=== PATIENT | male | born 1980 | race Caucasian/White ===

== ENCOUNTER 2017-06-22 07:07 | Emergency (ER) | payer OTHER ==
[2017-06-22 07:15] VITALS: BP 142/91; PULSE 75; TEMP 99.1; BMI 32.1
[2017-06-22] MEDS ORDERED: SODIUM CHLORIDE 0.9% 500 ML INFUS.BAG IV ONE (07:38)
--- NOTE | 2017-06-22 07:38 | PDOC ---
History of Present Illness - General Chief Complaint: Pain, Acute Stated Complaint: HAS THE FLU, BODY ACHES COUGH Time Seen by Provider: 06/22/17 07:15 - History of Present Illness Initial Comments: 06/22/17 08:02 36-year-old male with a history of MRSA infection complicated by C. difficile colitis presents with worsening productive cough and chest discomfort when coughing since yesterday. The patient was diagnosed with influenza 2 days ago at an urgent care center in [place]. He was advised at the time that should he experience any productive cough that he would need a chest x-ray to rule out pneumonia. He reports his cough is at times productive of green sputum.His brought him to the emergency department because this morning he had a syncopal episode after he used the bathroom at about 6am. The patient reports he had just voided and walked out of the bathroom and felt very lightheaded, had tunnel vision, and then sat down on the stairs. He then reports loss of consciousness for a few seconds. No fall or head strike. No injuries. No chest discomfort or palpitations prior to the syncopal episode. He reports a similar syncopal episode in the past also while sick, and also after using the bathroom. He reports he has not been eating much, but has been trying to drink plenty of water, Gatorade, and soup. He also reports a generalized, gradual onset headache and bodyaches since the onset of this flu symptoms. Denies any weakness or numbness. Denies chest pain, other than chest discomfort when he is coughing. Denies shortness of breath. Denies abdominal pain, nausea, vomiting, diarrhea. Denies any recent travel. Past History - Past Medical History Allergies/Adverse Reactions: Allergies Allergy/AdvReac Type Severity Reaction Status Date / Time No Known Drug Allergies Allergy Verified 06/22/17 07:09 wheat AdvReac Nausea Verified 06/22/17 07:09 COPD: No GI Disorders: Yes (COLITIS, C.DIFFICILE) Other medical history: DX WITH FLU ON TUESDAY - Immunization History Immunization Up to Date: Yes - Suicide/Smoking/Psychosocial Hx Smoking Status: No Smoking History: Never smoked Have you smoked in the past 12 months: No Number of Cigarettes Smoked Daily: 0 Information on smoking cessation initiated: No Hx Alcohol Use: No Drug/Substance Use Hx: No Substance Use Type: None Hx Substance Use Treatment: No Review of Systems - Review of Systems Comments:: 06/22/17 08:05 GENERAL/CONSTITUTIONAL: +fever and chills. No weakness. HEAD, EYES, EARS, NOSE AND THROAT: No change in vision. No ear pain or discharge. +sore throat. GASTROINTESTINAL: No nausea, vomiting, diarrhea or constipation. GENITOURINARY: No dysuria, frequency, or change in urination. CARDIOVASCULAR: +chest discomfort. No shortness of breath. RESPIRATORY: +cough, no wheezing or hemoptysis. MUSCULOSKELETAL: +bodyaches. No neck or back pain. SKIN: No rash NEUROLOGIC: +headache, no vertigo, loss of consciousness, or change in strength/ sensation. ENDOCRINE: No increased thirst. No abnormal weight change. HEMATOLOGIC/LYMPHATIC: No anemia, easy bleeding, or history of blood clots. ALLERGIC/IMMUNOLOGIC: No hives or skin allergy. *Physical Exam - Vital Signs Last Vital Signs Temp Pulse Resp BP Pulse Ox 99.1 F 75 18 142/91 96 06/22/17 07:09 06/22/17 07:09 06/22/17 07:09 06/22/17 07:09 06/22/17 07:09 - Physical Exam Comments: 06/22/17 08:15 GENERAL: Awake, alert, and fully oriented, in no acute distress with a mask on HEAD: No signs of trauma EYES: PERRLA, EOMI, sclera anicteric, conjunctiva clear ENT: Auricles normal inspection, hearing grossly normal, nares patent, oropharynx clear without exudates. Moist mucosa NECK: Normal ROM, supple, no lymphadenopathy, JVD, or masses LUNGS: Breath sounds equal, clear to auscultation bilaterally. No wheezes, and no crackles HEART: Regular rate and rhythm, normal S1 and S2, no murmurs, rubs or gallops ABDOMEN: Soft, nontender, normoactive bowel sounds. No guarding, no rebound. No masses EXTREMITIES: Normal range of motion, no edema. No clubbing or cyanosis. No cords, erythema, or tenderness NEUROLOGICAL: Normal speech, cranial nerves intact, negative pronator drift, 5/ 5 strength in all 4 extremities, normal sensation to light touch in all 4 extremities, normal cerebellar exam, normal gait, normal reflexes and tone SKIN: Warm, Dry, normal turgor, no rashes or lesions noted. Heart Score/ECG Review #1 06/22/17 08:11 Twelve-lead EKG was performed and reviewed by me. Normal sinus rhythm, rate 70. CT interval appears short in some leads, but normal in other leads. Other intervals within normal limits. Normal axis. No ST elevations. ED Treatment Course - LABORATORY CBC & Chemistry Diagram: 06/22/17 08:06 06/22/17 08:06 - RADIOLOGY Radiology Studies Ordered: Category Date Time Status CHEST PA & LAT [RAD] Stat Radiology 06/22/17 07:38 Ordered Medical Decision Making - Medical Decision Making 06/22/17 08:12 36-year-old male, recently diagnosed with the flu, presents with productive cough and syncopal episode. Lungs are clear on exam, and his oxygen saturation on my exam is 99% on room air. It is unlikely that the patient has pneumonia, but we'll obtain a chest x-ray to evaluate for any infiltrates. His symptoms more likely represents bronchitis in the setting of his influenza. With regards to the syncopal episode, it most likely represents vasovagal syncope as it occurred after he voided and in the setting of a viral illness. His EKG has a short CT interval and some leads, but a normal one in others. No delta waves, and thus unlikely WPW. Patient is possibly dehydrated, we'll obtain blood work and give fluids and reassess. 06/22/17 08:49 CBC wnl. CXR clear with no infiltrates. Awaiting CMP 06/22/17 09:53 CMP wnl. All results discussed with pt and his . These symptoms are likely all flu related. Pt has off from work tomorrow, advised him to follow up with PMD tomorrow. I discussed the physical exam findings, ancillary test results and final diagnoses with the patient. I answered all of the patient's questions. The patient was satisfied with the care received and felt comfortable with the discharge plan and treatment plan. The patient will call their primary care physician within 24 hours to arrange follow-up and will return to the Emergency Department with any new, persistent or worsening symptoms. *DC/Admit/Observation/Transfer Diagnosis at time of Disposition: Influenza - Discharge Dispostion Disposition: HOME Condition at time of disposition: Stable Admit: No - Referrals - Patient Instructions Printed Discharge Instructions: DI for Influenza -- Adult Additional Instructions: Follow-up with your primary care doctor within 1-2 days. As discussed, take the provided copy of your EKG to the doctor for a repeat, and possible referral to a gi physician. Return to the emergency department if you have any new, worsening or concerning symptoms. - Post Discharge Activity - Attestations Physician Attestion: 06/22/17 09:55 I, Dr. Leonardo Stafford MD, attest that this document has been prepared under my direction and personally reviewed by me in its entirety. I further attest, that it accurately reflects all work, treatment, procedures and medical decision -making performed by me.
[2017-06-22 08:16] LABS: BASO % 0.8 % (0-2.0); EOS % 9.9 % (0-4.5); HEMATOCRIT 41.9 % (35.4-49); HEMOGLOBIN 14.2 GM/dl (11.7-16.9); LYMPH % 22.5 % (8-40); MCH 28.8 pg (25.7-33.7); MCHC 33.9 g/dl (32.0-35.9); MEAN CELL VOLUME 84.9 fl (80-96); MEAN PLT VOLUME 9.5 fl (7.5-11.1); MONO % 11.8 % (3.8-10.2); PLATELET COUNT 131 K/MM3 (134-434); RBC 4.94 M/mm3 (4.00-5.60); RDW 12.5 % (11.9-15.9)
[2017-06-22 09:28] LABS: ALBUMIN 3.4 g/dl (3.4-5.0); ALK PHOS 70 U/L (45-117); ANION GAP 9 (8-16); BILIRUBIN,TOTAL 0.3 mg/dL (0.2-1.0); BLOOD UREA NITROGEN 8 mg/dL (7-18); CALCIUM 7.8 mg/dL (8.5-10.1); CHLORIDE 105 mmol/L (98-107); CO2 26 mmol/L (21-32); CREATININE 0.8 mg/dL (0.7-1.3); GLUCOSE,RANDOM 93 mg/dL (74-106); POTASSIUM 4.1 mmol/L (3.5-5.1); SGOT/AST 19 U/L (15-37); SGPT/ALT 25 U/L (12-78); SODIUM 140 mmol/L (136-145); TOT PROT 6.3 g/dl (6.4-8.2)
--- NOTE | 2017-06-23 17:42 | EKG ---
Test Reason : Blood Pressure : / mmHG Vent. Rate : 070 BPM Atrial Rate : 070 BPM P-R Int : 106 ms QRS Dur : 090 ms QT Int : 392 ms P-R-T Axes : 030 002 -12 degrees QTc Int : 423 ms SINUS RHYTHM WITH SHORT NV NO PREVIOUS ECGS AVAILABLE Confirmed by MD MADDY, CHETAN ([id number]) on 06/23/2017 5:41:40 PM Referred By: SARAH AYALA Confirmed By:CHETAN CASTAÑEDA MD
== END 2017-06-22 10:14 | disposition home or self-care (01) ==
LOC: FER 07:07
PROC: 3E0337Z Introduction of Electrolytic and Water Balance Substance into Peripheral Vein, Percutaneous Approach (ICD-10-PCS; principal; 2017-06-22)
DX: J11.1 Influenza due to unidentified influenza virus with other respiratory manifestations (principal); Z86.14 Personal history of Methicillin resistant Staphylococcus aureus infection
CPT/HCPCS: 36415; 71046-TC; 80053; 84484; 85025; 93005; 99281-25

== ENCOUNTER 2017-08-13 16:02 | Emergency (ER) | payer OTHER ==
--- NOTE | 2017-08-13 16:09 | PDOC ---
History of Present Illness <Leonardo Stafford - Last Filed: 08/13/17 17:47> - General History Source: Patient Exam Limitations: No Limitations - History of Present Illness Initial Comments: 08/13/17 21:05 The patient is a 36 year old male with no past medical history who arrives to the ED s/p left pinky injury after playing basketball today. The patient states he fell onto his extended pinky and it has been jammed ever since. Denies head strike or other injuries. The patient reports mild pain and an inability to extend his pinky. The patient denies any numbness or tingling to his right extremity. He denies taking anything for pain. The patient denies any other focal deficits, He denies any recent illness, fevers, or chills. <Stefani Ledezma - Last Filed: 08/13/17 21:07> - General Chief Complaint: Injury Stated Complaint: LEFT 5TH FINGER INJURY Time Seen by Provider: 08/13/17 16:09 Past History - Past Medical History COPD: No GI Disorders: Yes (COLITIS, C.DIFFICILE) - Immunization History Immunization Up to Date: Yes - Suicide/Smoking/Psychosocial Hx Smoking Status: No Smoking History: Never smoked Have you smoked in the past 12 months: No Number of Cigarettes Smoked Daily: 0 Hx Alcohol Use: No Drug/Substance Use Hx: No Substance Use Type: None Hx Substance Use Treatment: No <Leonardo Stafford - Last Filed: 08/13/17 17:47> <Stefani Ledezma - Last Filed: 08/13/17 21:07> - Past Medical History Allergies/Adverse Reactions: Allergies Allergy/AdvReac Type Severity Reaction Status Date / Time No Known Drug Allergies Allergy Verified 08/13/17 16:08 wheat AdvReac Nausea Verified 08/13/17 16:08 Home Medications: Ambulatory Orders NK [No Known Home Medication] 08/13/17 Review of Systems - Review of Systems Able to Perform ROS?: Yes Comments:: 08/13/17 21:06 GENERAL/CONSTITUTIONAL: No fever or chills. No weakness. HEAD, EYES, EARS, NOSE AND THROAT: No change in vision. No ear pain or discharge. No sore throat. GASTROINTESTINAL: No nausea, vomiting, diarrhea or constipation. GENITOURINARY: No dysuria, frequency, or change in urination. CARDIOVASCULAR: No chest pain or shortness of breath. RESPIRATORY: No cough, wheezing, or hemoptysis. MUSCULOSKELETAL: Present: Right 5th digit pain No neck or back pain. SKIN: No rash NEUROLOGIC: No headache, vertigo, loss of consciousness, or change in strength/ sensation. ENDOCRINE: No increased thirst. No abnormal weight change. HEMATOLOGIC/LYMPHATIC: No anemia, easy bleeding, or history of blood clots. ALLERGIC/IMMUNOLOGIC: No hives or skin allergy. All Other Systems: Reviewed and Negative <Stefani Ledezma - Last Filed: 08/13/17 21:07> *Physical Exam - Vital Signs Last Vital Signs Temp Pulse Resp BP Pulse Ox 98.3 F 90 20 143/90 100 08/13/17 16:02 08/13/17 16:02 08/13/17 16:02 08/13/17 16:02 08/13/17 16:02 - Physical Exam Comments: 08/13/17 21:06 GENERAL: Awake, alert, and fully oriented, in no acute distress HEAD: No signs of trauma EYES: PERRLA, EOMI, sclera anicteric, conjunctiva clear ENT: Auricles normal inspection, hearing grossly normal, nares patent, oropharynx clear without exudates. Moist mucosa NECK: Normal ROM, supple, no lymphadenopathy, JVD, or masses LUNGS: Breath sounds equal, clear to auscultation bilaterally. No wheezes, and no crackles HEART: Regular rate and rhythm, normal S1 and S2, no murmurs, rubs or gallops ABDOMEN: Soft, nontender, normoactive bowel sounds. No guarding, no rebound. No masses EXTREMITIES: L fifth digit with edema and ecchymosis at the proximal intraphalangeal joint with boutonniere deformity Normal range of motion +weak extension at PIP. Normal sensation of L fifth digit. No clubbing or cyanosis. No cords. 2+ radial pulses b/l BACK: No midline spinal tenderness in cervical/thoracic/lumbar region NEUROLOGICAL: Normal speech, cranial nerves intact, negative pronator drift, 5/ 5 strength in all 4 extremities, normal sensation to light touch in all 4 extremities, normal cerebellar exam, normal gait, normal reflexes and tone SKIN: Warm, Dry, normal turgor, no rashes or lesions noted. <Stefani Ledezma - Last Filed: 08/13/17 21:07> ED Treatment Course - RADIOLOGY Radiograph Interpretation: 08/13/17 17:21 EXAM: HAND- LEFT XRAY HISTORY: Status post trauma. COMPARISON: None. FINDINGS: X-ray left hand 3 views There is no evidence of fracture or dislocation. There is a contracture deformity noted involving the proximal interphalangeal joint of the fifth finger. No significant osteodegenerative changes or other osseous abnormalities are appreciated. No significant surrounding soft tissue abnormality is seen. IMPRESSION: No fracture or dislocation. Contracture deformity involving the proximal interphalangeal joint of the fifth finger. THIS DOCUMENT HAS BEEN ELECTRONICALLY SIGNED Lanre Holder MD - Medications Given in the ED: ED Medications Discontinued Medications Generic Name Dose Route Start Last Admin Trade Name Freq PRN Reason Stop Dose Admin Ibuprofen 600 mg 08/13/17 16:13 08/13/17 16:19 Motrin - PO 08/13/17 16:14 600 mg ONCE ONE Administration <Stefani Ledezma - Last Filed: 08/13/17 21:07> Medical Decision Making - Medical Decision Making 08/13/17 16:14 36-year-old male with no significant past medical history presents with left fifth finger injury from jamming it while playing basketball. Exam with edema to the PIP of the left fifth finger. Patient is neurovascularly intact and able to range his L 5th finger fully but with pain. Will obtain an x-ray to evaluate for fracture versus dislocation. Will treat with Motrin and reassess. 08/13/17 17:47 XR with no fracture or dislocation, likely acute boutonniere deformity due to central slip injury. Case and imaging discussed with Dr. Ingram who recommends spliting in extension and ortho f/u. Discussed results with patient and the importance of keeping the finger in extension in the splint so that it can heal. Pt has his own orthopedic doctor with whom he can follow up (XR report given to patient). WIll also refer to Dr. Gaines in case he can not get an appointment with his own ortho doc. Pain well controlled with motrin, pt requests DC. I discussed the physical exam findings, ancillary test results and final diagnoses with the patient. I answered all of the patient's questions. The patient was satisfied with the care received and felt comfortable with the discharge plan and treatment plan. The patient will call their primary care physician within 24 hours to arrange follow-up and will return to the Emergency Department with any new, persistent or worsening symptoms. <Leonardo Stafford - Last Filed: 08/13/17 17:47> *DC/Admit/Observation/Transfer - Discharge Dispostion Admit: No - Attestations Physician Attestion: 08/13/17 18:02 I, Dr. Leonardo Stafford MD, attest that this document has been prepared under my direction and personally reviewed by me in its entirety. I further attest, that it accurately reflects all work, treatment, procedures and medical decision -making performed by me. <Leonardo Stafford - Last Filed: 08/13/17 17:47> - Attestations Scribe Attestion: 08/13/17 17:22 Documentation prepared by Stefani Ledezma, acting as medical practice administrator for Leonardo Stafford MD. 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 Follow-up with your orthopedic doctor within one week. In case you are are unable to get an appointment, use our provided referral to follow-up with Dr. Gaines within 1 week. Take the provided x- ray report with you to your appointment. Take Motrin as needed for pain every 6 hours. Return to the emergency department if you have any new, worsening or concerning symptoms.
[2017-08-13] MEDS ORDERED: IBUPROFEN 600 MG TABLET (FP) PO ONE ×2 (16:13→16:18)
[2017-08-13 16:16] VITALS: BP 143/90; PULSE 90; TEMP 98.3; BMI 31.4
== END 2017-08-13 18:04 | disposition home or self-care (01) ==
LOC: FER 16:02
PROC: 2W3KX1Z Immobilization of Left Finger using Splint (ICD-10-PCS; principal; 2017-08-13)
DX: M20.022 Boutonniere deformity of left finger(s) (principal); X58.XXXA Exposure to other specified factors, initial encounter; Y93.67 Activity, basketball; Y92.9 Unspecified place or not applicable
CPT/HCPCS: 73130-TC-LR-FY; 99281-25

== ENCOUNTER 2018-03-19 21:42 | Day surgery (SDC) | payer OTHER ==
[2018-03-19] MEDS ORDERED: GLUCAGON 1 MG KIT IVPUSH ONE (21:45)
--- NOTE | 2018-03-19 21:45 | PDOC ---
History of Present Illness - General History Source: Patient Exam Limitations: No Limitations - History of Present Illness Initial Comments: 03/19/18 22:34 The patient is a 37-year-old male presents to the emergency department with dysphagia since 2:00 pm today. The patient states the symptoms presented after eating BBQ chicken pizza earlier today. The patient reports since presentation hes been unable to keep food or fluid down. The patient states after intaking food or liquid, he'll immediately vomit it back up. The patient reports prior similar incident in the past, reports having an endoscopy done in the past. The patient states the doctor informed him that he has a tight sphincter. The patient states prior incidents werent as severe as today and previous incidents resolved on its own. Denies shortness of breath, diarrhea, constipation, abdominal pain, chest pain or abdominal bloating. PAST MEDICAL HISTORY: MRSA infection complicated by C. difficile colitis PAST SURGICAL HISTORY: Endoscopy FAMILY HISTORY: no pertinent history SOCIAL HISTORY: Pt lives with family and is employed. No past or present use of tobacco, alcohol or recreational drug use. MEDICATIONS: reviewed ALLERGIES: NKDA ROS: General: No fevers or chills, no weakness, no weight loss HEENT: No change in vision. No sore throat,. No ear pain CardioVascular: No chest pain or shortness of breath Respiratory:No cough, or wheezing. Gastrointestinal: (+) Difficulty swallowing. no nausea, vomiting, diarrhea or constipation, No rectal bleeding Genitourinary: No dysuria, hematuria, or frequency Musculoskeletal: No joint or muscle pain or swelling Neurologic: No headache, vertigo, dizziness or loss of consciousness Psychiatric: nor depression Skin: No rashes or easy bruising Endocrine: no increased thirst or abnormal weight change Allergic: no skin or latex allergy All other systems reviewed and normal PE: General: Well-nourished well-developed individual, no acute distress HEENT: Throat: Normal, tonsils normal, no erythema or exudate Neck: Supple, no meningeal signs, no lymphadenopathy Eyes::Pupils equal reactive and round, extraocular motion intact Chest: Nontender to palpation Cardiac: S1-S2 normal, regular rate and rhythm, no murmurs rubs or gallops Respiratory: Lungs clear to auscultation bilateral Abdomen: (+) Patient points to the gastroesophageal junction as the point where something is stuck. The patient was given is a cup of water at the ER, that he vomited back up and continuously bring up of secretion. nondistended, nontender to palpation diffusely Extremities: Warm, dry, no cyanosis, clubbing, or edema Skin: No rashes Neuro: Alert and oriented x3, nonfocal exam, grossly intact, normal gait Psych: Normal mood and affect <Terese Lopez - Last Filed: 03/19/18 23:32> - General History Source: Patient Exam Limitations: No Limitations - History of Present Illness Initial Comments: A portion of this note was documented by scribe services under my direction. I have reviewed the details of the note, within reason, and agree with the documentation. The case summary and management plan written by me. 03/19/18 23:11 This is a 37-year-old male with a complaint of a food bolus impaction. Patient has history of similar in the past is always passed without needing intervention. However patient said it is been 5 hours since he ate some chicken and it is been unable to pass. Patient will be given glucagon absent and GI contacted Patient reevaluated 1 hour after glucagon with no improvement in his symptoms GI has been contacted but not replied back yet patient will most likely need an upper endoscopy to remove the food bolus. 03/19/18 23:47 Patient's food bolus never passed here in the emergency room so GI was contacted and patient was transferred to [facility] for endoscopy and removal of the food bolus. <Pj Mogran I - Last Filed: 03/19/18 23:48> - General Chief Complaint: Pain, Acute Stated Complaint: FOOD STUCK, UNABLE TO SWALLOW Time Seen by Provider: 03/19/18 21:45 Past History <Terese Lopez - Last Filed: 03/19/18 23:32> - Past Medical History COPD: No GI Disorders: Yes (COLITIS, C.DIFFICILE) - Immunization History Immunization Up to Date: Yes - Suicide/Smoking/Psychosocial Hx Smoking Status: No Smoking History: Never smoked Have you smoked in the past 12 months: No Number of Cigarettes Smoked Daily: 0 Hx Alcohol Use: No Drug/Substance Use Hx: No Substance Use Type: None Hx Substance Use Treatment: No <Pj Morgan I - Last Filed: 03/19/18 23:48> - Past Medical History Allergies/Adverse Reactions: Allergies Allergy/AdvReac Type Severity Reaction Status Date / Time No Known Drug Allergies Allergy Verified 03/19/18 21:57 wheat AdvReac Nausea Verified 03/19/18 21:57 Home Medications: Ambulatory Orders NK [No Known Home Medication] 08/13/17 *Physical Exam - Vital Signs Last Vital Signs Temp Pulse Resp BP Pulse Ox 98 F 92 H 16 137/99 98 03/19/18 21:58 03/19/18 21:58 03/19/18 21:58 03/19/18 21:58 03/19/18 21:58 <Terese Lopez - Last Filed: 03/19/18 23:32> ED Treatment Course - LABORATORY CBC & Chemistry Diagram: 03/19/18 21:50 03/19/18 21:50 - Medications Given in the ED: ED Medications Discontinued Medications Generic Name Dose Route Start Last Admin Trade Name Freq PRN Reason Stop Dose Admin Glucagon 1 mg 03/19/18 21:45 03/19/18 21:55 Glucagon - IVPUSH 03/19/18 21:46 1 mg ONCE ONE Administration <Terese Lopez - Last Filed: 03/19/18 23:32> - LABORATORY CBC & Chemistry Diagram: 03/19/18 21:50 03/19/18 21:50 <Pj Morgan I - Last Filed: 03/19/18 23:48> Medical Decision Making - Medical Decision Making 03/19/18 22:[address] Melissa at [phone], spoke with the service, waiting for a call back. 03/19/18 22:[address] Melissa, spoke with the service, waiting for a call back. 03/19/18 23:[address] Melissa, call placed to Dr. Cuadra, spoke with the service, waiting for a call back. 03/19/18 23:[address] Cuadra, unable to accept the case. 03/19/18 23:19 Dr. Melissa called shortly after, case discussed with Dr. Melissa and accepted the case. Dr. Melissa asked the patient to be transferred to the [facility] 03/19/18 23:25 EMS called for the patient. 03/19/18 23:40 Patient is sent out to [facility]. <Terese Lopez - Last Filed: 03/19/18 23:32> *DC/Admit/Observation/Transfer - Attestations Scribe Attestion: 03/19/18 22:51 Documentation prepared by Terese Lopez, acting as medical office rep for Pj Morgan MD. <Terese Lopez - Last Filed: 03/19/18 23:32> <Pj Morgan I - Last Filed: 03/19/18 23:48> Diagnosis at time of Disposition: Food impaction of esophagus Qualifiers: Encounter type: initial encounter Qualified Code(s): T18.128A - Food in esophagus causing other injury, initial encounter - Discharge Dispostion Condition at time of disposition: Stable
[2018-03-19] MEDS ORDERED: GLUCAGON 1 MG KIT ONE (21:50)
[2018-03-19 22:03] VITALS: BMI 30.7
[2018-03-19 22:12] LABS: BASO % 0.7 % (0-2.0); EOS % 3.5 % (0-4.5); HEMATOCRIT 47.5 % (35.4-49); HEMOGLOBIN 15.8 GM/dl (11.7-16.9); LYMPH % 23.1 % (8-40); MCH 28.7 pg (25.7-33.7); MCHC 33.2 g/dl (32.0-35.9); MEAN CELL VOLUME 86.5 fl (80-96); MONO % 6.6 % (3.8-10.2); NEUT % 66.1 % (42.8-82.8); PLATELET COUNT 229 K/MM3 (134-434); RBC 5.49 M/mm3 (4.00-5.60); RDW 12.6 % (11.9-15.9); WHITE BLOOD COUNT 8.9 K/mm3 (4.0-10.8)
[2018-03-19 22:23] LABS: ALBUMIN 4.8 g/dl (3.5-5.0); ALK PHOS 84 U/L (32-92); ANION GAP 9 MMOL/L (8-16); BLOOD UREA NITROGEN 15 mg/dl (7-18); CALCIUM 10.2 mg/dl (8.4-10.2); CHLORIDE 100 mmol/L (98-107); CO2 29 mmol/L (22-28); CREATININE 0.9 mg/dl (0.6-1.3); GLUCOSE,RANDOM 98 mg/dl (74-106); POTASSIUM 4.4 mmol/L (3.5-5.1); SGOT/AST 27 U/L (10-42); SGPT/ALT 34 U/L (10-40); SODIUM 138 mmol/L (136-145); TOT PROT 8.2 g/dl (6.4-8.3)
[2018-03-20] MEDS ORDERED: fentaNYL CITRATE 250 MCG/5 ML VIAL ONE (00:15)
[2018-03-20] MEDS ORDERED: ONDANSETRON 4 MG/2 ML VIAL IVPUSH PRN (01:06)
--- NOTE | 2018-03-20 01:14 | CONS ---
DATE OF CONSULTATION: DATE OF DICTATION: 03/20/2018 The patient is a 37-year-old male with a past medical history significant for an episode of colitis in the past, currently not on any medications, also with previous food impactions. He states that he had an upper endoscopy some time ago and they told him that he had what appears to be eosinophilic esophagitis from his description. He states he was eating some chicken pizza today and shortly thereafter he felt that he could not pass a food bolus. This occurred at about 2 o'clock this afternoon. He has not been able to tolerate liquids or his own saliva. He denies any abdominal pain, melena, hematochezia, weight loss, fevers, chills, or hematemesis. PAST MEDICAL AND SURGICAL HISTORY: As listed in the HPI. ALLERGIES: No known drug allergies. SOCIAL HISTORY: Does not drink, smoke, or use drugs. FAMILY HISTORY: Noncontributory. HOME MEDICATIONS: Denies any. PHYSICAL EXAMINATION: Vital Signs: Stable. HEENT: Anicteric sclerae. Cardiovascular: S1, S2. Regular rate and rhythm. Lungs: Bilaterally clear to auscultation. Abdomen: Soft and nontender. Extremities: No edema. LABORATORY: Pending at this time. IMPRESSION: Dysphagia, most likely secondary to a food impaction. Questionable underlying eosinophilic esophagitis as the etiology of his current symptoms. RECOMMENDATIONS: N.P.O. We will plan for an urgent endoscopy. Risks and benefits were explained in detail including, but limited to perforation, missed lesion, infection, bleeding, and sedation. He should be started on Protonix 40 mg p.o. daily and a clear liquid diet after the procedure with outpatient follow up in 4 weeks for repeat endoscopy with midesophagus biopsies. DO OMAIRA HIGHTOWER/[id number]
[2018-03-20] MEDS ORDERED: ACETAMINOPHEN 1000 MG/100 ML VIAL (NON FORMULARY) IVPB ONE (01:15)
[2018-03-20] MEDS ORDERED: ACETAMINOPHEN INJECTION 100 ML IVPB ONE (01:17)
[2018-03-20 03:26] VITALS: BP 140/86; PULSE 79; TEMP 97.8
== END 2018-03-20 03:05 | disposition home or self-care (01) ==
LOC: FER 21:42 → FASU-ENDO 03-20 00:04 → JASU-ENDO 03-20 00:15
PROVIDERS: ATTEND Internal Medicine Gastroenterology
PROC: 0DJ08ZZ Inspection of Upper Intestinal Tract, Via Natural or Artificial Opening Endoscopic (ICD-10-PCS; principal; 2018-03-20 00:25)
DX: T18.128A Food in esophagus causing other injury, initial encounter (principal); K22.2 Esophageal obstruction; X58.XXXA Exposure to other specified factors, initial encounter; Y93.9 Activity, unspecified; Y92.89 Other specified places as the place of occurrence of the external cause
CPT/HCPCS: 36415; 80053; 85025; 94760; 99282-25; J0131

== ENCOUNTER 2018-04-26 09:37 | Day surgery (SDC) | payer OTHER ==
[2018-04-25 14:04] VITALS: BMI 32.1
[2018-04-26 09:54] VITALS: TEMP 97.9
[2018-04-26] MEDS ORDERED: PROPOFOL 20 ML ONE ×2 (10:07)
[2018-04-26 11:13] VITALS: PULSE 77
[2018-04-26 11:44] VITALS: BP 143/91
--- NOTE | 2018-04-28 14:42 | PATH ---
Surgical Pathology Report Patient Name: HAL BARBOZA [facility]. Rec. #: [id number] /Age/Gender: 1980 (Age: 37) / M Account: [id number] Location: [facility] Taken: 04/26/2018 Received: 04/26/2018 Reported: 04/28/2018 Physicians: Melany Melissa M.D. Specimen(s) Received A: DUODENUM 2ND PORTION B: ANTRUM C: GE JUNCTION D: MID ESOPHAGUS Clinical History GERD vs. eosinophilic esophagitis Postoperative diagnosis: Gastritis Final Diagnosis A. DUODENUM 2ND PORTION, BIOPSY: DUODENAL MUCOSA WITH NO PATHOLOGIC FINDINGS. B. ANTRUM, BIOPSY: MILD CHRONIC GASTRITIS. IMMUNOSTAIN IS NEGATIVE FOR H. PYLORI ORGANISMS. C. GE JUNCTION, BIOPSY: COLUMNAR (GASTRIC CARDIA-TYPE) MUCOSA SHOWING MODERATE CHRONIC INFLAMMATION. NEGATIVE FOR INTESTINAL METAPLASIA. NO ESOPHAGEAL (SQUAMOUS) MUCOSA IS IDENTIFIED. D. MID ESOPHAGUS, BIOPSY: MILDLY HYPERPLASTIC SPONGIOTIC SQUAMOUS (ESOPHAGEAL) MUCOSA SHOWING MILD TO MODERATE INCREASE IN INTRAEPITHELIAL EOSINOPHILS (7-8 IN A AIR QUALITY CHEMIST HIGH POWER FIELD). SEE NOTE. NEGATIVE FOR INTESTINAL METAPLASIA. Note: There is histologic overlap between features of gastroesophageal reflux disease and eosinophilic esophagitis, however, eosinophilic esophagitis, more often presents with much more numerous intraepithelial eosinophils ( > 25 in a access representative high power field). Based on the current findings, reflux esophagitis is favored. Correlation with clinical history (stigmata of other allergic diseases) and pH monitoring may be helpful. Electronically Signed Sarah Mckeon M.D. Gross Description A. Received in formalin, labeled "biopsy duodenum 2nd portion" is a torres, irregular portion of soft tissue measuring 0.3 cm. in greatest dimension. The specimen is submitted in toto in one cassette. B. Received in formalin, labeled "biopsy antrum" is a torres, irregular portion of soft tissue measuring 0.3 cm. in greatest dimension. The specimen is submitted in toto in one cassette. C. Received in formalin, labeled "biopsy GE junction" is a torres, irregular portion of soft tissue measuring 0.4 cm. in greatest dimension. The specimen is submitted in toto in one cassette. D. Received in formalin, labeled "biopsy mid esophagus" is a torres, irregular portion of soft tissue measuring 0.2 cm. in greatest dimension. The specimen is submitted in toto in one cassette. DL/04/26/2018 saudi04/26/2018
== END 2018-04-26 11:55 | disposition home or self-care (01) ==
LOC: FASU-ENDO 09:37
PROVIDERS: ATTEND Internal Medicine Gastroenterology
PROC: 0DB68ZX Excision of Stomach, Via Natural or Artificial Opening Endoscopic, Diagnostic (ICD-10-PCS; 2018-04-26)
PROC: 0DB48ZX Excision of Esophagogastric Junction, Via Natural or Artificial Opening Endoscopic, Diagnostic (ICD-10-PCS; 2018-04-26)
PROC: 0DB98ZX Excision of Duodenum, Via Natural or Artificial Opening Endoscopic, Diagnostic (ICD-10-PCS; principal; 2018-04-26 10:45)
DX: K29.50 Unspecified chronic gastritis without bleeding (principal); K22.8 Other specified diseases of esophagus; K31.89 Other diseases of stomach and duodenum; R13.10 Dysphagia, unspecified
CPT/HCPCS: 88305-TC; 88342-TC

== ENCOUNTER 2018-08-15 15:54 | Observation (INO) | payer OTHER ==
--- NOTE | 2018-08-15 16:04 | PDOC ---
History of Present Illness - General Chief Complaint: Chest Pain Stated Complaint: chest pain and shortness of breath Time Seen by Provider: 08/15/18 16:04 - History of Present Illness Initial Comments: 37yo M with history of GERD and colitis presenting with chest pain. Patient states that he felt "discomfort" and "stress" on the left side of his chest starting at 1pm while he was standing. The pain away on its own after about ten minutes. It came back around 3pm as he was getting in the car to come to the ED. 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 The pain is rated 6/10 and he has not taken anything at home for it. Patient has associated shortness of breath and lightheadedness, but no nausea, vomiting, or diaphoresis. It is palpable, pleuritic, and radiates down his left arm with numbness He has never felt anything like this before. Patient reports playing basketball and lifting weights yesterday but contends that the weights were not very heavy. In addition , he had lifted a heavy ladder at work about two hours prior to first feeling the chest pain. Denies personal or family history of VT. Has never seen a patrol lady. No hemoptysis, no recent surgical history, no recent immobilization, no hormone use, no history of DVT or PE. No fevers or abdominal pain. PCP: none Past History - Past Medical History Allergies/Adverse Reactions: Allergies Allergy/AdvReac Type Severity Reaction Status Date / Time No Known Drug Allergies Allergy Verified 08/15/18 15:57 wheat AdvReac Nausea Verified 08/15/18 15:57 Home Medications: Ambulatory Orders Pantoprazole Sodium [Protonix] 40 mg PO DAILY 30 Days #30 tablet.dr SPRAGUE 08/16/18 Anemia: No Asthma: No Cancer: No Cardiac Disorders: No CVA: No COPD: No CHF: No Dementia: No Diabetes: No GI Disorders: Yes (COLITIS, C.DIFFICILE 2006,GERD) Disorders: No HTN: No Hypercholesterolemia: No Liver Disease: No Seizures: No Thyroid Disease: No - Surgical History Abdominal Surgery: No Appendectomy: No Cardiac Surgery: No Cholecystectomy: No Lung Surgery: No Neurologic Surgery: No Orthopedic Surgery: Yes (Ledt Shoulder Arthroscopy 01/2018) - Immunization History Immunization Up to Date: Yes - Suicide/Smoking/Psychosocial Hx Smoking Status: No Smoking History: Never smoked Have you smoked in the past 12 months: No Number of Cigarettes Smoked Daily: 0 Hx Alcohol Use: No Drug/Substance Use Hx: No Substance Use Type: None Hx Substance Use Treatment: No Review of Systems - Review of Systems Comments:: Constitutional: no fever, no chills HEENT: no throat pain, no dysphagia Cardiovascular: +chest pain, no palpitations Respiratory: no cough, +shortness of breath Gastrointestinal: no abdominal pain, no nausea Genitourinary: no dysuria, no frequency Musculoskeletal: no myalgia, no arthralgia Skin: no rash, no itching Neurologic: no headache, +lightheaded *Physical Exam - Physical Exam Comments: General: Awake, alert, and fully oriented, in no acute distress Head: No signs of trauma Eyes: EOMI, sclera anicteric ENT: Moist mucus membranes Neck: Normal ROM, supple Lungs: Lungs clear, Normal breath sounds Cardio: Regular rhythm, S1 and S2 present Abdomen: Soft, nontender. No guarding, no rebound, no masses Extremities: Normal range of motion, Distal pulses present SKIN: Warm, Dry, normal turgor Neurologic: Cranial nerves II through XII grossly intact. Normal speech ED Treatment Course - LABORATORY CBC & Chemistry Diagram: 08/16/18 05:59 08/16/18 05:59 Medical Decision Making - Medical Decision Making 37yo M with history of GERD and colitis presenting with chest pain. DDX including but not limited to ACS, PNA, MSK, PE Toradol 30mg IV Cardiac workup 08/15/18 16:33 EKG: rate 86, QTc 459, NSR, T wave inversions in V5-V6, not present in previous EKG 06/22/17 First tpn negative No anemia or leukocytosis CXR without acute pathology, my impression Patient reports feeling drowsy. 08/15/18 18:[address] Leon who recommends admission for stress test and ECHO. 08/15/18 18:38 Paged hospitalist team 08/15/18 18:[address] Pederson who accepted patient for admission *DC/Admit/Observation/Transfer Diagnosis at time of Disposition: Chest pain Qualifiers: Chest pain type: unspecified Qualified Code(s): R07.9 - Chest pain, unspecified - Discharge Dispostion Condition at time of disposition: Guarded Decision to Admit order: Yes - Referrals - Patient Instructions - Post Discharge Activity
[2018-08-15] MEDS ORDERED: KETOROLAC TROMETHAMINE 30 MG/1 ML VIAL IVPUSH ONE (16:32)
[2018-08-15] MEDS ORDERED: KETOROLAC TROMETHAMINE 30 MG/1 ML VIAL ONE (16:40)
--- NOTE | 2018-08-15 16:43 | PDOC ---
Attending Attestation - Resident Resident Name: Agnieszka Quinn - ED Attending Attestation I have performed the following: I have examined & evaluated the patient, The case was reviewed & discussed with the resident, I agree w/resident's findings & plan, Exceptions are as noted - HPI HPI: 08/15/18 17:30 37 year old male c/ hx of colitis, GERD, left shoulder surgery presents with left sided chest pain. The patient reported that he was exercising as usual (light bench pressing and basketball yesterday). This morning woke up to go and lift a ladder for work when he felt this reproducible left sided chest pain. States that it made him dizzy and lightheaded and somewhat SOB. He denies dyspnea on exertion. States that palpation of left shoulder reproduces the pain. He denies any family history of cardiac disease. Did smoke a few cigarettes in his earlier years but denies smoking. 1st time episode. Denies other injuries. States the pain occasionally radiates to his left shoulder. - Physicial Exam PE: 08/15/18 17:33 GENERAL: Awake, alert, and fully oriented, in no acute distress HEAD: No signs of trauma EYES: EOMI, sclera anicteric, conjunctiva clear ENT: Auricles normal inspection, hearing grossly normal, nares patent, Moist mucosa NECK: Normal ROM, supple LUNGS: Breath sounds equal, clear to auscultation bilaterally. No wheezes, and no crackles HEART: Regular rate and rhythm, normal S1 and S2, no murmurs, rubs or gallops CHEST: Palpation of insertion of left pec major reproduces the pain exactly. ABDOMEN: Soft, nontender, No guarding, no rebound. No masses EXTREMITIES: Normal range of motion, no edema. No clubbing or cyanosis. No cords, erythema, or tenderness NEUROLOGICAL: Cranial nerves II through XII grossly intact. Normal speech, normal gait SKIN: Warm, Dry, normal turgor, no rashes or lesions noted. - Medical Decision Making 08/15/18 17:34 Vital Signs Temp Pulse Resp BP Pulse Ox 97.7 F 67 18 140/97 100 08/15/18 15:56 08/15/18 15:56 08/15/18 15:56 08/15/18 15:56 08/15/18 15:56 I suspect that the patient likely has MSK chest pain, though has new findings on ECG. However, given the symptoms, and ECG with LVH and TWI V5-V6, will troponins. Chest xray, labs, NSAIDS, and reassess. If the workup is negative and patient feels better, will consult cardiology 08/15/18 18:09 CBC, BMP 08/15/18 16:41 08/15/18 17:18 CMP Sodium 133 mmol/L (136-145) L 08/15/18 17:18 Potassium 3.8 mmol/L (3.5-5.1) 08/15/18 17:18 Chloride 101 mmol/L (98-107) 08/15/18 17:18 Carbon Dioxide 27 mmol/L (21-32) 08/15/18 17:18 Anion Gap 5 MMOL/L (8-16) L 08/15/18 17:18 BUN 17 mg/dl (7-18) 08/15/18 17:18 Creatinine 0.9 mg/dl (0.55-1.3) 08/15/18 17:18 Creat Clearance w eGFR > 60 (>60) 08/15/18 17:18 Random Glucose 93 mg/dl (74-106) 08/15/18 17:18 Calcium 9.0 mg/dl (8.5-10) 08/15/18 17:18 Total Bilirubin 0.5 mg/dl (0.2-1) 08/15/18 17:18 AST 28 U/L (15-37) 08/15/18 17:18 ALT 25 U/L (13-61) 08/15/18 17:18 Alkaline Phosphatase 75 U/L (45-117) 08/15/18 17:18 Creatine Kinase 458 U/L (26-308) H 08/15/18 16:41 Creatine Kinase Index 0.6 % (0.0-5.0) 08/15/18 16:41 CK-MB (CK-2) 3.2 ng/mL (0.5-3.6) 08/15/18 16:41 Troponin I < 0.03 ng/ml (0.00-0.05) 08/15/18 16:41 Total Protein 6.4 g/dl (6.4-8.2) 08/15/18 17:18 Albumin 4.0 g/dl (3.4-5.0) 08/15/18 17:18 Chest xray reviewed by me, pending official radiology read. No acute findings. Pt's initial troponin is negative Will consult cardiology in regards for ECG findings. 08/15/18 18:[address] Orellana requests admission for stress and echo. Will give aspirin and admit patient to hospital. Heart Score/ECG Review #1 ECG reviewed & interpreted by me at: 16:10 08/15/18 16:43 NSR 68 with short RI, +LVH, TWI III, flat AvF, TWI V5-V6, no std/ping, QTC 425 msec
[2018-08-15 17:03] LABS: BASO % 1.1 % (0-2.0); EOS % 5.5 % (0-4.5); HEMATOCRIT 43.5 % (35.4-49); MCH 27.3 pg (25.7-33.7); MCHC 32.2 g/dl (32.0-35.9); MEAN CELL VOLUME 84.7 fl (80-96); MEAN PLT VOLUME 9.5 fl (7.5-11.1); MONO % 5.5 % (3.8-10.2); NEUT % 62.9 % (42.8-82.8); PLATELET COUNT 184 K/MM3 (134-434); RBC 5.13 M/mm3 (4.00-5.60); RDW 13.3 % (11.9-15.9); WHITE BLOOD COUNT 6.6 K/mm3 (4.0-10.8)
[2018-08-15] MEDS ORDERED: SODIUM CHLORIDE 1,000 ML IV STA (17:10)
[2018-08-15 17:46] LABS: ALK PHOS 75 U/L (45-117); ANION GAP 5 MMOL/L (8-16); BILIRUBIN,TOTAL 0.5 mg/dl (0.2-1); BLOOD UREA NITROGEN 17 mg/dl (7-18); CHLORIDE 101 mmol/L (98-107); CO2 27 mmol/L (21-32); CREATININE 0.9 mg/dl (0.55-1.3); GLUCOSE,RANDOM 93 mg/dl (74-106); POTASSIUM 3.8 mmol/L (3.5-5.1); SGOT/AST 28 U/L (15-37); SGPT/ALT 25 U/L (13-61); SODIUM 133 mmol/L (136-145); TOT PROT 6.4 g/dl (6.4-8.2)
--- NOTE | 2018-08-15 18:41 | CON.CARD ---
Consult Consult Specialty:: Cardiology Reason for Consultation:: chest pain - History of Present Illness History of Present Illness: 37yo M with history of GERD and colitis presenting with chest pain. Patient states that he felt "discomfort" and "stress" on the left side of his chest starting at 1pm while he was standing. The pain away on its own after about ten minutes. It came back around 3pm as he was getting in the car to come to the ED. 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 The pain is rated 6/10 and he has not taken anything at home for it. Patient has associated shortness of breath and lightheadedness, but no nausea, vomiting, or diaphoresis. It is palpable, pleuritic, and radiates down his left arm with numbness He has never felt anything like this before. Patient reports playing basketball and lifting weights yesterday but contends that the weights were not very heavy. In addition , he had lifted a heavy ladder at work about two hours prior to first feeling the chest pain. Denies personal or family history of CA. Has never seen a glass cleaner. No hemoptysis, no recent surgical history, no recent immobilization, no hormone use, no history of DVT or PE. No fevers or abdominal pain. - History Source History Provided By: Patient, Medical Record - Alcohol/Substance Use Hx Alcohol Use: No - Smoking History Smoking history: Never smoked Have you smoked in the past 12 months: No Aproximately how many cigarettes per day: 0 Home Medications - Allergies Allergies/Adverse Reactions: Allergies Allergy/AdvReac Type Severity Reaction Status Date / Time No Known Drug Allergies Allergy Verified 08/15/18 15:57 wheat AdvReac Nausea Verified 08/15/18 15:57 - Home Medications Home Medications: Ambulatory Orders Pantoprazole Sodium [Protonix] 40 mg PO DAILY 30 Days #30 tablet.dr SPRAGUE 03/20/18 Review of Systems - Review of Systems Constitutional: reports: No Symptoms Eyes: reports: No Symptoms HENT: reports: No Symptoms Neck: reports: No Symptoms Cardiovascular: reports: Chest Pain Gastrointestinal: reports: No Symptoms Genitourinary: reports: No Symptoms Breasts: reports: No Symptoms Reported Musculoskeletal: reports: No Symptoms Integumentary: reports: No Symptoms Neurological: reports: No Symptoms Endocrine: reports: No Symptoms Hematology/Lymphatic: reports: No Symptoms Psychiatric: reports: No Symptoms Vital Signs: Vital Signs Temperature 97.7 F 08/15/18 15:56 Pulse Rate 67 08/15/18 15:56 Respiratory Rate 18 08/15/18 15:56 Blood Pressure 140/97 08/15/18 15:56 O2 Sat by Pulse Oximetry (%) 100 08/15/18 15:56 Constitutional: Yes: Well Nourished, No Distress, Calm Eyes: Yes: WNL, Conjunctiva Clear, EOM Intact HENT: Yes: WNL, Atraumatic, Normocephalic Neck: Yes: WNL, Supple, Trachea Midline Respiratory: Yes: WNL, Regular, CTA Bilaterally Gastrointestinal: Yes: WNL, Normal Bowel Sounds Renal/: Yes: WNL Cardiovascular: Yes: WNL, Regular Rate and Rhythm Musculoskeletal: Yes: WNL Extremities: Yes: WNL Integumentary: Yes: WNL Neurological: Yes: WNL, Alert, Oriented ...Motor Strength: WNL Psychiatric: Yes: WNL, Alert, Oriented - Other Data Labs, Other Data: CBC, BMP 08/15/18 16:41 08/15/18 17:18 Troponin, BNP 08/15/18 08/15/18 16:41 16:41 Troponin I Cancelled < 0.03 Troponin, BNP 08/15/18 08/15/18 16:41 16:41 Troponin I Cancelled < 0.03 Imaging - Results Chest X-ray: Pending Problem List - Problems (1) 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 Code(s): M20.022 - BOUTONNIERE DEFORMITY OF LEFT FINGER(S) (2) Contusion of hand Code(s): S60.229A - CONTUSION OF UNSPECIFIED HAND, INITIAL ENCOUNTER (3) Ear pain, right Code(s): H92.01 - OTALGIA, RIGHT EAR (4) Food impaction of esophagus Code(s): T18.128A - FOOD IN ESOPHAGUS CAUSING OTHER INJURY, INITIAL ENCOUNTER (5) Influenza Code(s): J11.1 - FLU DUE TO UNIDENTIFIED INFLUENZA VIRUS W OTH RESP MANIFEST (6) Paronychia of third finger, left Code(s): L03.012 - CELLULITIS OF LEFT FINGER (7) Sprain of right ankle Code(s): S93.401A - SPRAIN OF UNSPECIFIED LIGAMENT OF RIGHT ANKLE, INIT ENCNTR (8) Viral upper respiratory infection Code(s): J06.9 - ACUTE UPPER RESPIRATORY INFECTION, UNSPECIFIED; B97.89 - OTH VIRAL AGENTS THE CAUSE OF DISEASES CLASSD ELSWHR Assessment/Plan 37yo M with history of GERD and colitis presenting with chest pain. Patient states that he felt "discomfort" and "stress" on the left side of his chest starting at 1pm while he was standing. HTN Morbid obesity Plan admit to telemetry r/o mi serial enzymes asa 81 qd echo stress test
[2018-08-15] MEDS ORDERED: ASPIRIN 81 MG CHEWABLE TABLETS ONE (18:53)
[2018-08-15] MEDS: ASPIRIN COATED 81 MG TABLET.EC PO SCH (18:57)
--- NOTE | 2018-08-15 19:49 | HP ---
CHIEF COMPLAINT: chest pain PCP: HISTORY OF PRESENT ILLNESS: 37yo man with GERD c/o sharp left sided chest pain, no radiation, unrelated to exertion, reproducible, which started at 1pm on 08/15 which was associated with palpitations. Patient was lifting ladder and lifting weights including chest exercises shortly prior to onset of chest pain. Patient also reports being physically active on a regular basis including playing basketball. Denied any family history of CAD. ER course was notable for: (1) troponin (2) ekg (3) Recent Travel: no PAST MEDICAL HISTORY: GERD, celiac disease PAST SURGICAL HISTORY: EGD Social History: Smoking:no Alcohol: no Drugs: no Family History: hypertension, dyslipidemia Allergies No Known Drug Allergies Allergy (Verified 08/15/18 15:57) wheat Adverse Reaction (Verified 08/15/18 15:57) Nausea RELATED TO COLITIS HOME MEDICATIONS: Home Medications Medication Instructions Recorded Pantoprazole Sodium [Protonix] 40 mg PO DAILY 30 Days #30 03/20/18 tablet.dr SPRAGUE REVIEW OF SYSTEMS CONSTITUTIONAL: Absent: fever, chills, diaphoresis, generalized weakness, malaise, loss of appetite, weight change HEENT: Absent: rhinorrhea, nasal congestion, throat pain, throat swelling, difficulty swallowing, mouth swelling, ear pain, eye pain, visual changes CARDIOVASCULAR: Absent: syncope, lightheadedness, peripheral edema present- chest pain, palpitations, irregular heart rate, RESPIRATORY: Absent: cough, shortness of breath, dyspnea with exertion, orthopnea, wheezing, stridor, hemoptysis GASTROINTESTINAL: Absent: abdominal pain, abdominal distension, nausea, vomiting, diarrhea, constipation, melena, hematochezia GENITOURINARY: Absent: dysuria, frequency, urgency, hesitancy, hematuria, flank pain, genital pain MUSCULOSKELETAL: Absent: arthralgia, joint swelling, back pain, neck pain present- myalgia, SKIN: Absent: rash, itching, pallor HEMATOLOGIC/IMMUNOLOGIC: Absent: easy bleeding, easy bruising, lymphadenopathy, frequent infections ENDOCRINE: Absent: unexplained weight gain, unexplained weight loss, heat intolerance, cold intolerance NEUROLOGIC: Absent: headache, focal weakness or paresthesias, dizziness, unsteady gait, seizure, mental status changes, bladder or bowel incontinence PSYCHIATRIC: Absent: anxiety, depression, suicidal or homicidal ideation, hallucinations. PHYSICAL EXAMINATION Vital Signs - 24 hr 08/15/18 08/15/1819 15:56 19:20 19:31 Temperature 97.7 F Pulse Rate 67 Pulse Rate [ 62 64 Left] Respiratory 18 16 16 Rate Blood Pressure 140/97 Blood Pressure 152/99 125/81 [Left] O2 Sat by Pulse 100 100 98 Oximetry (%) GENERAL: Awake, alert, and fully oriented, in no acute distress. HEAD: Normal with no signs of trauma. EYES: Pupils equal, round and reactive to light, extraocular movements intact, sclera anicteric, conjunctiva clear. No lid lag. EARS, NOSE, THROAT: Ears normal, nares patent, oropharynx clear without exudates. Moist mucous membranes. NECK: Normal range of motion, supple without lymphadenopathy, JVD, or masses. LUNGS: Breath sounds equal, clear to auscultation bilaterally. No wheezes, and no crackles. No accessory muscle use. Chest- tender to palpation of left chest HEART: Regular rate and rhythm, normal S1 and S2 without murmur, rub or gallop. ABDOMEN: Soft, nontender, not distended, normoactive bowel sounds, no guarding, no rebound, no masses. MUSCULOSKELETAL: Normal range of motion at all joints. No bony deformities or tenderness. No CVA tenderness. UPPER EXTREMITIES: 2+ pulses, warm, well-perfused. No cyanosis. No clubbing. No peripheral edema. LOWER EXTREMITIES: 2+ pulses, warm, well-perfused. No calf tenderness. No peripheral edema. NEUROLOGICAL: Cranial nerves II-XII intact. Normal speech. PSYCHIATRIC: Cooperative. Good eye contact. Appropriate mood and affect. SKIN: Warm, dry, normal turgor, no rashes or lesions noted, normal capillary refill. Laboratory Results - last 24 hr 08/15/18 08/15/18 08/15/18 16:41 16:41 16:41 WBC 6.6 RBC 5.13 Hgb 14.0 Hct 43.5 MCV 84.7 MCH 27.3 MCHC 32.2 RDW 13.3 Plt Count 184 MPV 9.5 Absolute Neuts (auto) 4.0 Neutrophils % 62.9 Lymphocytes % 25.0 Monocytes % 5.5 Eosinophils % 5.5 H Basophils % 1.1 Sodium Cancelled Potassium Cancelled Chloride Cancelled Carbon Dioxide Cancelled Anion Gap Cancelled BUN Cancelled Creatinine Cancelled Creat Clearance w eGFR Cancelled Random Glucose Cancelled Calcium Cancelled Total Bilirubin Cancelled AST Cancelled ALT Cancelled Alkaline Phosphatase Cancelled Creatine Kinase Cancelled Creatine Kinase Index CK-MB (CK-2) Troponin I Cancelled < 0.03 Total Protein Cancelled Albumin Cancelled 08/15/18 08/15/18 16:41 17:18 WBC RBC Hgb Hct MCV MCH MCHC RDW Plt Count MPV Absolute Neuts (auto) Neutrophils % Lymphocytes % Monocytes % Eosinophils % Basophils % Sodium 133 L Potassium 3.8 Chloride 101 Carbon Dioxide 27 Anion Gap 5 L BUN 17 Creatinine 0.9 Creat Clearance w eGFR > 60 Random Glucose 93 Calcium 9.0 Total Bilirubin 0.5 AST 28 ALT 25 Alkaline Phosphatase 75 Creatine Kinase 458 H Creatine Kinase Index 0.6 CK-MB (CK-2) 3.2 Troponin I Total Protein 6.4 Albumin 4.0 Imaging reviewed ekg reviewed- wnl ASSESSMENT/PLAN: #Chest pain- likely musculoskeletal in nature as patient reports heavy lifting prior to onset, and lacks ACS risk factors -tele-obs -cardiology consulted- Dr. Cali -trend troponins -monitor VS closely -echo -stress test -ibuprofen 400mg PO prn if chest pain #GERD -c/w protonix 40mg po #Celiac disease -gluten free diet DVT ppx -scds Visit type - Emergency Visit Emergency Visit: Yes Care time: The patient presented to the Emergency Department on the above date and was hospitalized for further evaluation of their emergent condition. - New Patient This patient is new to me today: Yes Date on this admission: 08/15/18 - Critical Care Critical Care patient: No
[2018-08-15] MEDS ORDERED: IBUPROFEN 400 MG TABLET (FP) PO PRN (20:21)
[2018-08-15] MEDS ORDERED: SODIUM CHLORIDE 1,000 ML IV SCH (20:30)
[2018-08-15] MEDS ORDERED: HEPARIN NA (PORCINE) 5,000 UNITS/ML 1ML VIAL SQ SCH (22:00)
[2018-08-16] MEDS ORDERED: IBUPROFEN 400 MG TABLET (FP) PO ONE (06:12)
[2018-08-16 06:33] LABS: HEMATOCRIT 40.9 % (35.4-49); MCH 28.4 pg (25.7-33.7); MCHC 34.2 g/dl (32.0-35.9); MEAN PLT VOLUME 8.9 fl (7.5-11.1); PLATELET COUNT 147 K/MM3 (134-434); RBC 4.93 M/mm3 (4.00-5.60); RDW 14.1 % (11.9-15.9); WHITE BLOOD COUNT 5.7 K/mm3 (4.0-10.0)
[2018-08-16 06:59] LABS: ANION GAP 5 MMOL/L (8-16); BLOOD UREA NITROGEN 17 mg/dL (7-18); CALCIUM 8.2 mg/dL (8.5-10.1); CHLORIDE 107 mmol/L (98-107); CO2 26 mmol/L (21-32); CREATININE 0.8 mg/dL (0.55-1.3); GLUCOSE,RANDOM 88 mg/dL (74-106); MAGNESIUM 2.1 mg/dL (1.8-2.4); POTASSIUM 4.1 mmol/L (3.5-5.1); SODIUM 139 mmol/L (136-145)
[2018-08-16 07:02] LABS: CHOLESTEROL 183 mg/dL (50-200); HDL CHOLESTEROL 38 mg/dL (40-60); LDL CHOLESTEROL (ONLY DFH) 112 mg/dl (5-100); TRIGLYCERIDES 165 mg/dL (0-150)
[2018-08-16] MEDS ORDERED: ASPIRIN 81 MG CHEWABLE TABLETS ONE (09:12)
[2018-08-16] MEDS ORDERED: PANTOPRAZOLE 40 MG TABLET (FP) ONE (09:12)
[2018-08-16] MEDS: ASPIRIN COATED 81 MG TABLET.EC PO SCH (09:16)
[2018-08-16 09:17] VITALS: BP 136/88; PULSE 72; TEMP 97.8
[2018-08-16] MEDS ORDERED: PANTOPRAZOLE 40 MG TABLET (FP) PO SCH (10:00)
--- NOTE | 2018-08-16 10:22 | EKG ---
Test Reason : Blood Pressure : / mmHG Vent. Rate : 068 BPM Atrial Rate : 068 BPM P-R Int : 110 ms QRS Dur : 092 ms QT Int : 400 ms P-R-T Axes : 036 -20 -15 degrees QTc Int : 425 ms SINUS RHYTHM WITH SHORT [place] VOLTAGE CRITERIA FOR LEFT VENTRICULAR HYPERTROPHY NONSPECIFIC T WAVE ABNORMALITY ABNORMAL ECG WHEN COMPARED WITH ECG OF 22-JUN-2017 07:46, NONSPECIFIC T WAVE ABNORMALITY NOW EVIDENT IN ANTERIOR LEADS Confirmed by GINA LANCASTER, SATHYA ([id number]) on 08/16/2018 10:22:09 AM Referred By: DR HERNANDEZ Confirmed By:SATHYA FUENTES MD
--- NOTE | 2018-08-16 10:35 | PN ---
Progress Note, Physician History of Present Illness: 37yo M with history of GERD and colitis presenting with chest pain. Patient states that he felt "discomfort" and "stress" on the left side of his chest starting at 1pm while he was standing. The pain away on its own after about ten minutes. It came back around 3pm as he was getting in the car to come to the ED. 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 The pain is rated 6/10 and he has not taken anything at home for it. Patient has associated shortness of breath and lightheadedness, but no nausea, vomiting, or diaphoresis. It is palpable, pleuritic, and radiates down his left arm with numbness He has never felt anything like this before. Patient reports playing basketball and lifting weights yesterday but contends that the weights were not very heavy. In addition , he had lifted a heavy ladder at work about two hours prior to first feeling the chest pain. Denies personal or family history of NH. 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 No hemoptysis, no recent surgical history, no recent immobilization, no hormone use, no history of DVT or PE. No fevers or abdominal pain. - Current Medication List Current Medications: Active Medications Aspirin (Ecotrin -) 81 mg PO DAILY [facility] Last Admin: 08/16/18 09:16 Dose: 81 mg Sodium Chloride (Normal Saline -) 1,000 mls @ 75 mls/hr IV ASDIR [facility] Last Admin: 08/15/18 20:39 Dose: 75 mls/hr Ibuprofen (Motrin -) 400 mg PO Q6H PRN PRN Reason: FEVER Last Admin: 08/16/18 06:12 Dose: 400 mg Pantoprazole Sodium (Protonix -) 40 mg PO DAILY [facility] Last Admin: 08/16/18 09:16 Dose: 40 mg - Objective Vital Signs: Vital Signs Temperature 97.8 F 08/16/18 09:18 Pulse Rate 72 08/16/18 09:18 Respiratory Rate 16 08/16/18 09:18 Blood Pressure 136/88 08/16/18 09:18 O2 Sat by Pulse Oximetry (%) 98 08/16/18 09:17 Eyes: Yes: WNL, Conjunctiva Clear, EOM Intact HENT: Yes: WNL, Atraumatic, Normocephalic Neck: Yes: WNL, Supple, Trachea Midline Cardiovascular: Yes: WNL, Regular Rate and Rhythm Respiratory: Yes: WNL, Regular, CTA Bilaterally Gastrointestinal: Yes: WNL, Normal Bowel Sounds Genitourinary: Yes: WNL Musculoskeletal: Yes: WNL Extremities: Yes: WNL Edema: No Integumentary: Yes: WNL Neurological: Yes: WNL, Alert, Oriented ...Motor Strength: WNL Psychiatric: Yes: WNL Labs: CBC, BMP 08/16/18 05:59 08/16/18 05:59 Problem List - Problems (1) 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 Code(s): M20.022 - BOUTONNIERE DEFORMITY OF LEFT FINGER(S) (2) Contusion of hand Code(s): S60.229A - CONTUSION OF UNSPECIFIED HAND, INITIAL ENCOUNTER (3) Ear pain, right Code(s): H92.01 - OTALGIA, RIGHT EAR (4) Food impaction of esophagus Code(s): T18.128A - FOOD IN ESOPHAGUS CAUSING OTHER INJURY, INITIAL ENCOUNTER (5) Influenza Code(s): J11.1 - FLU DUE TO UNIDENTIFIED INFLUENZA VIRUS W OTH RESP MANIFEST (6) Paronychia of third finger, left Code(s): L03.012 - CELLULITIS OF LEFT FINGER (7) Sprain of right ankle Code(s): S93.401A - SPRAIN OF UNSPECIFIED LIGAMENT OF RIGHT ANKLE, INIT ENCNTR (8) Viral upper respiratory infection Code(s): J06.9 - ACUTE UPPER RESPIRATORY INFECTION, UNSPECIFIED; B97.89 - OTH VIRAL AGENTS THE CAUSE OF DISEASES CLASSD ELSWHR Assessment/Plan 37yo M with history of GERD and colitis presenting with chest pain. Patient states that he felt "discomfort" and "stress" on the left side of his chest starting at 1pm while he was standing. HTN Morbid obesity r/o mi neg Plan echo nl exercise stress test negative patient can be d/c home and folowed as the outpatient for w/u of short pr interval if palpitations persists
--- NOTE | 2018-08-16 13:09 | ECHO ---
Name: HAL BARBOZA Exam:Adult Echocardiogram Study Date: 08/16/2018 12:13 PM Age: 37 yrs Reason For Study: LVEF Height: 71 in Weight: 230 lb BSA: 2.2 m2 MMode/2D Measurements & Calculations IVSd: 1.2 cm Ao root diam: 2.5 cm LVIDd: 4.6 cm LA dimension: 3.7 cm LVIDs: 3.2 cm LVPWd: 0.98 cm EDV(Teich): 95.7 ml TAPSE: 3.0 cm ESV(Teich): 39.5 ml Doppler Measurements & Calculations MV E max favian: 72.1 cm/sec Ao V2 max: 118.3 cm/sec MV A max favian: 48.4 cm/sec Ao max P.6 mmHg MV E/A: 1.5 MV dec time: 0.21 sec LV V1 max P.0 mmHg MR max favian: 289.4 cm/sec LV V1 max: 71.6 cm/sec MR max P.6 mmHg TR max favian: 143.9 cm/sec PI end-d favian: 33.7 cm/sec TR max P.3 mmHg Med Peak E' Favian: 9.1 cm/sec Med E/e': 7.9 Lat Peak E' Favian: 6.8 cm/sec Lat E/e': 10.6 Procedure A two-dimensional transthoracic echocardiogram with color flow and Doppler was performed. Left Ventricle The left ventricular size, thickness and function are normal. The left ventricular ejection fraction is normal. Left Ventricular Filling pattern is normal for age. The left ventricular wall motion is robyn l. Right Ventricle The right ventricle is normal in size and function. Atria Normal left and right atrial size and function. Mitral Valve The mitral valve is normal in structure and function. There is no mitral valve stenosis. There is tra ce mitral regurgitation. Tricuspid Valve The tricuspid valve is normal in structure and function. There is no tricuspid stenosis. There is tra ce tricuspid regurgitation. Right ventricular systolic pressure is normal. Aortic Valve The aortic valve is normal in structure and function. No hemodynamically significant valvular aortic stenosis. No aortic regurgitation is present. Pulmonic Valve The pulmonic valve is not well visualized. Great Vessels The aortic root is normal size. Pericardium/Pleura There is no pericardial effusion. Interpretation Summary The left ventricular size, thickness and function are normal The left ventricular ejection fraction is normal. The left ventricular wall motion is normal. Left Ventricular Filling pattern is normal for age. There is trace mitral regurgitation. There is trace tricuspid regurgitation. Right ventricular systolic pressure is normal. MD Francesco Leon 08/16/2018 01:08 PM
--- NOTE | 2018-08-16 13:15 | DS ---
Physical Exam: SUBJECTIVE: Patient seen and examined at bedside. Feels well. Still with reproducible chest pain but palpitations have resolved. Feels ready to go home. OBJECTIVE: Vital Signs Period Temp Pulse Resp BP Sys/Dumont Pulse Ox Last 24 Hr 97.7 F-97.8 F 58-72 16-18 125-152/78-99 96-100 PHYSICAL EXAM GENERAL: The patient is awake, alert, and fully oriented, in no acute distress. HEAD: Normal with no signs of trauma. EYES: PERRL, extraocular movements intact, sclera anicteric, conjunctiva clear. ENT: Ears normal, nares patent, oropharynx clear without exudates, moist mucous membranes. NECK: Trachea midline, full range of motion, supple. LUNGS: Breath sounds equal, clear to auscultation bilaterally, no wheezes, no crackles, no accessory muscle use. HEART: Regular rate and rhythm, S1, S2 without murmur, rub or gallop. ABDOMEN: Soft, nontender, nondistended, normoactive bowel sounds, no guarding, no rebound, no hepatosplenomegaly, no masses. EXTREMITIES: 2+ pulses, warm, well-perfused, no edema. NEUROLOGICAL: Cranial nerves II through XII grossly intact. Normal speech, gait not observed. LABS Laboratory Results - last 24 hr 08/15/18 08/15/18 08/15/18 05:59 16:41 16:41 WBC 6.6 RBC 5.13 Hgb 14.0 Hct 43.5 MCV 84.7 MCH 27.3 MCHC 32.2 RDW 13.3 Plt Count 184 MPV 9.5 Absolute Neuts (auto) 4.0 Neutrophils % 62.9 Lymphocytes % 25.0 Monocytes % 5.5 Eosinophils % 5.5 H Basophils % 1.1 Sodium Cancelled Potassium Cancelled Chloride Cancelled Carbon Dioxide Cancelled Anion Gap Cancelled BUN Cancelled Creatinine Cancelled Creat Clearance w eGFR Cancelled POC Glucometer Random Glucose Cancelled Calcium Cancelled Magnesium Total Bilirubin Cancelled AST Cancelled ALT Cancelled Alkaline Phosphatase Cancelled Creatine Kinase Cancelled Creatine Kinase Index CK-MB (CK-2) Troponin I Cancelled < 0.03 Total Protein Cancelled Albumin Cancelled Triglycerides Cholesterol Total LDL Cholesterol HDL Cholesterol 08/15/18 08/15/18 08/16/18 16:41 17:18 00:00 WBC RBC Hgb Hct MCV MCH MCHC RDW Plt Count MPV Absolute Neuts (auto) Neutrophils % Lymphocytes % Monocytes % Eosinophils % Basophils % Sodium 133 L Potassium 3.8 Chloride 101 Carbon Dioxide 27 Anion Gap 5 L BUN 17 Creatinine 0.9 Creat Clearance w eGFR > 60 POC Glucometer Random Glucose 93 Calcium 9.0 Magnesium Total Bilirubin 0.5 AST 28 ALT 25 Alkaline Phosphatase 75 Creatine Kinase 458 H 290 Creatine Kinase Index 0.6 0.6 CK-MB (CK-2) 3.2 2.0 Troponin I < 0.02 Total Protein 6.4 Albumin 4.0 Triglycerides Cholesterol Total LDL Cholesterol HDL Cholesterol 08/16/18 08/16/18 08/16/18 05:51 05:59 05:59 WBC 5.7 RBC 4.93 Hgb 14.0 Hct 40.9 MCV 83.0 MCH 28.4 MCHC 34.2 RDW 14.1 Plt Count 147 MPV 8.9 Absolute Neuts (auto) Neutrophils % Lymphocytes % Monocytes % Eosinophils % Basophils % Sodium Potassium Chloride Carbon Dioxide Anion Gap BUN Creatinine Creat Clearance w eGFR POC Glucometer 82 Random Glucose Calcium Magnesium Total Bilirubin AST ALT Alkaline Phosphatase Creatine Kinase Creatine Kinase Index CK-MB (CK-2) Troponin I Total Protein Albumin Triglycerides 165 H Cholesterol 183 Total LDL Cholesterol 112 H HDL Cholesterol 38 L 08/16/18 08/16/18 05:59 05:59 WBC RBC Hgb Hct MCV MCH MCHC RDW Plt Count MPV Absolute Neuts (auto) Neutrophils % Lymphocytes % Monocytes % Eosinophils % Basophils % Sodium 139 Potassium 4.1 Chloride 107 Carbon Dioxide 26 Anion Gap 5 L BUN 17 Creatinine 0.8 Creat Clearance w eGFR > 60 POC Glucometer Random Glucose 88 Calcium 8.2 L Magnesium 2.1 Total Bilirubin AST ALT Alkaline Phosphatase Creatine Kinase 239 Creatine Kinase Index 0.7 CK-MB (CK-2) 1.8 Troponin I < 0.02 Total Protein Albumin Triglycerides Cholesterol Total LDL Cholesterol HDL Cholesterol HOSPITAL COURSE: Date of Admission:08/15/18 Date of Discharge: 08/16/18 Pre hospital course 37 year-old male with a PMH significant for GERD, celiac disease, and colitis. Presented to the ED with a complaint of left-sided chest pain. The patient reported that he was exercising as usual, light bench pressing and basketball the day before. This morning woke up to go and lift a ladder for work when he felt this reproducible left sided chest pain. States that it made him dizzy and lightheaded and somewhat SOB. He denies dyspnea on exertion. States that palpation of left shoulder reproduces the pain. ED course (1) Troponin neg x 1 (2) ECG: SR @68bpm (3) CXR: unremarkable Subsequent hospital course by problem list Atypical chest pain --troponins neg x 3 --ECG not suggestive of acute ischemic event --Echo: LV normal; RV normal; trace MR: trace TR --Excercise stress: negative GERD --protonix Celiac disease --stable Colitis --stable Minutes to complete discharge: 35 Discharge Summary Reason For Visit: CHEST PAIN Current Active Problems Chest pain (Acute) Condition: Improved - Instructions Diet, Activity, Other Instructions: You indicated you do not have a primary care provider. You may wish to see Dr. Angela. His contact information is enclosed. A prescription has been sent to your pharmacy for protonix. Take this medication as directed. Return to the emergency department for any new or worsening symptoms. Referrals: Damien Angela MD [Staff Physician] - Disposition: HOME - Home Medications Comprehensive Discharge Medication List: Ambulatory Orders Pantoprazole Sodium [Protonix] 40 mg PO DAILY 30 Days #30 tablet.dr SPRAGUE 03/20/18 This patient is new to me today: Yes Date on this admission: 08/16/18 Emergency Visit: Yes ED Registration Date: 08/15/18 Care time: The patient presented to the Emergency Department on the above date and was hospitalized for further evaluation of their emergent condition. Critical Care patient: No - Discharge Referral Referred to [facility] No
--- NOTE | 2018-08-16 14:21 | TRE ---
Protocol Name : GM Max Work Load (METS*10) : 137 Time In Exercise Phase : 00:11:52 Max. Systolic BP : 170 mmHg Max Diastolic BP : 90 mmHg Max Heart Rate : 155 BPM Max Predicted Heart Rate : 182 BPM Attending Physician : DR. FUENTES Reason For Termination : Target Heart Rate Achieved Reason for Test : CP Stress Protocol : GM Rest HR : 82 BPM PeakEx METs : 13.4 METS Recovery ECG Response (OLD) : Overall Impression : See stress report under nuclear cover Diagnosis : Negative stress test. At peak exercise, no diagnostic EKG changes no arrhythmias, no ischemic symptoms Confirmed by GINA LANCASTER, SATHYA ([id number]) on 08/16/2018 2:21:30 PM
[2018-08-16 16:29] VITALS: BMI 31.8
== END 2018-08-16 17:35 | disposition home or self-care (01) ==
LOC: FER 15:54 → FM/S 19:49
PROVIDERS: ADMIT Internal Medicine; ATTEND Internal Medicine
PROC: 3E033GC Introduction of Other Therapeutic Substance into Peripheral Vein, Percutaneous Approach (ICD-10-PCS; principal; 2018-08-15)
PROC: 3E0337Z Introduction of Electrolytic and Water Balance Substance into Peripheral Vein, Percutaneous Approach (ICD-10-PCS; 2018-08-15)
DX: R07.89 Other chest pain (principal); K21.9 Gastro-esophageal reflux disease without esophagitis; K90.0 Celiac disease; K52.9 Noninfective gastroenteritis and colitis, unspecified; Z86.19 Personal history of other infectious and parasitic diseases
CPT/HCPCS: 36415; 71046-TC-FY; 80048; 80053; 80061; 82550; 82553; 82962; 83735; 84484; 85025; 85027; 93005; 93017; 93018; 93306-TC; 99285-25; G0378; J7030

== ENCOUNTER 2019-07-10 07:49 | Emergency (ER) | payer OTHER ==
[2019-07-10 08:02] VITALS: BP 134/88; PULSE 74; TEMP 98; BMI 32.1
[2019-07-10] MEDS ORDERED: ACETAMINOPHEN 325 MG TABLET (FP) PO ONE (08:13)
--- NOTE | 2019-07-10 08:13 | PDOC ---
History of Present Illness - General Chief Complaint: Cold Symptoms Stated Complaint: flu like symptoms Time Seen by Provider: 07/10/19 07:56 - History of Present Illness Initial Comments: 07/10/19 08:09 38 years old no significant past medical history presents to the emergency department with mild headache runny nose cough congestion nausea chills and body aches multiple sick contacts at home with similar symptoms no travel no comorbidities symptoms started on Tuesday now on day 3. Symptoms are moderate persistent constant no exacerbating alleviating factors slight GI illness preceding this but no current vomiting or diarrhea Past History - Past Medical History Allergies/Adverse Reactions: Allergies Allergy/AdvReac Type Severity Reaction Status Date / Time No Known Drug Allergies Allergy Verified 07/10/19 07:50 wheat AdvReac Nausea Verified 07/10/19 07:50 Home Medications: Ambulatory Orders Pantoprazole Sodium [Protonix] 40 mg PO DAILY 30 Days #30 tablet.dr SPRAGUE 08/16/18 Anemia: No Asthma: No Cancer: No Cardiac Disorders: No CVA: No COPD: No CHF: No Dementia: No Diabetes: No GI Disorders: Yes (COLITIS, C.DIFFICILE 2006,GERD) Disorders: No HTN: No Hypercholesterolemia: No Liver Disease: No Seizures: No Thyroid Disease: No - Surgical History Abdominal Surgery: No Appendectomy: No Cardiac Surgery: No Cholecystectomy: No Lung Surgery: No Neurologic Surgery: No Orthopedic Surgery: Yes (Ledt Shoulder Arthroscopy 01/2018) - Immunization History Immunization Up to Date: Yes - Psycho Social/Smoking Cessation Hx Smoking Status: No Smoking History: Never smoked Have you smoked in the past 12 months: No Number of Cigarettes Smoked Daily: 0 Hx Alcohol Use: Yes (socially) Drug/Substance Use Hx: No Substance Use Type: None Hx Substance Use Treatment: No Review of Systems - Review of Systems Comments:: 07/10/19 08:09 ROS: A complete review of 10 out of 10 review of systems is taken and is negative apart from what is previously mentioned below and in the HPI. *Physical Exam - Vital Signs Last Vital Signs Temp Pulse Resp BP Pulse Ox 98 F 74 18 134/88 100 07/10/19 07:50 07/10/19 07:50 07/10/19 07:50 07/10/19 07:50 07/10/19 07:50 - Physical Exam 07/10/19 08:10 Vitals: Triage Vital signs reviewed General Appearance: No acute distress, well nourished well developed, Head: Atraumatic, Eyes: Pupils equal reactive round, extraocular movement intact Ears: TM's normal bilaterally; Nose: Nares patent bilaterally; no nasal congestion Throat: Posterior oropharynx without erythema, mucous membranes moist, Neck: Supple; no Nucal rigidity Chest Wall: Nontender Cardiac: Regular rate and rhythym, no murmurs, no rubs, no gallops, Lungs: Clear to auscultation bilateral, good air movement bilaterally, Abdomen: Soft, non distended, normal bowel sounds, non tender to palpation Extremities: Full range of motion to all extremities, no cyanosis, clubbing, or edema Skin: Warm and dry, no rashes or lesions, no rash, no petechiae Psych: Normal mood, normal affect Medical Decision Making - Medical Decision Making 07/10/19 08:11 Well-appearing no apparent distress history and examination consistent with influenza given 3 days of symptoms discussed utility of Tamiflu shared decision- making used patient not candidate for Tamiflu at this time We will recommend rest hydration antipyretics note for work Findings, need for follow-up and strict return instructions discussed with patient. Discharge - Discharge Information Problems reviewed: Yes Clinical Impression/Diagnosis: Influenza Condition: Stable Disposition: HOME - Admission No - Follow up/Referral - Patient Discharge Instructions Patient Printed Discharge Instructions: Influenza Additional Instructions: Alternate Tylenol and Motrin every 3 hours as directed on package. Drink plenty fluids. No work until symptom free for 24 hours then okay to return to work full duty no restrictions follow-up with your doctor this week. Return to the emergency department for any severe worsening symptoms or for any concerns. - Post Discharge Activity Work/Back to School Note: Back to Work
[2019-07-10] MEDS ORDERED: ACETAMINOPHEN 325 MG TABLET (FP) ONE (08:18)
== END 2019-07-10 08:22 | disposition home or self-care (01) ==
LOC: FER 07:49
DX: J11.1 Influenza due to unidentified influenza virus with other respiratory manifestations (principal); Z91.018 Allergy to other foods
CPT/HCPCS: 99281-25

== ENCOUNTER 2020-12-29 16:08 | Emergency (ER) | payer OTHER ==
[2020-12-29 16:31] VITALS: BP 152/98; PULSE 83; TEMP 98; BMI 34.8
[2020-12-29] MEDS ORDERED: KETOROLAC TROMETHAMINE 60 MG/2 ML VIAL IM ONE (16:54)
[2020-12-29] MEDS ORDERED: KETOROLAC TROMETHAMINE 60 MG/2 ML VIAL ONE (16:57)
== END 2020-12-29 17:56 | disposition home or self-care (01) ==
LOC: FER 16:08
PROC: 3E0233Z Introduction of Anti-inflammatory into Muscle, Percutaneous Approach (ICD-10-PCS; principal; 2020-12-29)
DX: M54.5 Low back pain (principal)
CPT/HCPCS: 99283-25

== ENCOUNTER 2021-08-17 15:55 | Emergency (ER) | payer OTHER ==
[2021-08-17] MEDS ORDERED: ONDANSETRON 4 MG/2 ML VIAL IVPUSH ONE (17:24)
[2021-08-17] MEDS ORDERED: LIDOCAINE 5% TOPICAL PATCH TP ONE (17:24)
[2021-08-17] MEDS ORDERED: FAMOTIDINE 20 MG/50 ML IVPB 20 MG/50 ML MG IVPB ONE ×2 (17:24→17:56)
[2021-08-17] MEDS ORDERED: ACETAMINOPHEN 1000 MG/100 ML BAG IVPB ONE (17:24)
[2021-08-17] MEDS ORDERED: SODIUM CHLORIDE 0.9% 500 ML INFUS.BAG IV ONE (17:26)
[2021-08-17 17:40] VITALS: BMI 34.8
[2021-08-17] MEDS ORDERED: ACETAMINOPHEN INJECTION 100 ML IVPB ONE (17:56)
[2021-08-17] MEDS ORDERED: ONDANSETRON 4 MG/2 ML VIAL ONE (17:56)
[2021-08-17 18:44] LABS: ALBUMIN 4.1 g/dl (3.4-5.0); BILIRUBIN,TOTAL 0.6 mg/dl (0.2-1); CREATININE 0.9 mg/dl (0.55-1.3)
[2021-08-17] MEDS ORDERED: LIDOCAINE 5% TOPICAL PATCH ONE (18:56)
[2021-08-17 18:59] VITALS: BP 130/82; PULSE 80; TEMP 98.4
[2021-08-17 20:55] LABS: HEMATOCRIT 42.1 % (35.4-49); HEMOGLOBIN 14.4 GM/dL (11.7-16.9); LYMPH % 20.4 % (8-40); MCH 28.2 pg (25.7-33.7); MCHC 34.3 g/dl (32.0-35.9); MEAN CELL VOLUME 82.2 fl (80-96); MEAN PLT VOLUME 9.4 fl (7.5-11.1); MONO % 7.3 % (3.8-10.2); NEUT % 67.3 % (42.8-82.8); PLATELET COUNT 166 10^3/uL (134-434); RBC 5.11 M/mm3 (4.00-5.60); RDW 13.9 % (11.9-15.9); WHITE BLOOD COUNT 6.6 K/mm3 (4.0-10.0)
[2021-08-17 21:54] LABS: ANISOCYTOSIS 1+; MACROCYTOSIS 0
[2021-08-17] MEDS ORDERED: LIDOCAINE PATCH REMOVAL MC SCH (22:00)
== END 2021-08-17 21:23 | disposition home or self-care (01) ==
LOC: FER 15:55
PROC: 3E033GC Introduction of Other Therapeutic Substance into Peripheral Vein, Percutaneous Approach (ICD-10-PCS; principal; 2021-08-17)
DX: M54.89 Other dorsalgia (principal); K59.00 Constipation, unspecified
CPT/HCPCS: 36415; 74019-TC-FY; 80053; 83690; 85025; 99284-25

== ENCOUNTER 2021-12-11 22:01 | Emergency (ER) | payer OTHER ==
[2021-12-11 22:14] VITALS: BP 139/88; PULSE 75; TEMP 99.1; BMI 33.5
[2021-12-11] MEDS ORDERED: KETOROLAC TROMETHAMINE 60 MG/2 ML VIAL IM ONE (22:22)
[2021-12-11] MEDS ORDERED: predniSONE 20 MG TABLET (UD) PO ONE (22:23)
[2021-12-11] MEDS ORDERED: CYCLOBENZAPRINE HCL 5 MG TABLET PO STA (22:23)
[2021-12-11] MEDS ORDERED: predniSONE 20 MG TABLET (UD) ONE (22:26)
[2021-12-11] MEDS ORDERED: KETOROLAC TROMETHAMINE 60 MG/2 ML VIAL ONE (22:26)
[2021-12-11] MEDS ORDERED: CYCLOBENZAPRINE HCL 5 MG TABLET ONE (22:27)
== END 2021-12-11 22:39 | disposition home or self-care (01) ==
LOC: FER 22:01
PROC: 3E0233Z Introduction of Anti-inflammatory into Muscle, Percutaneous Approach (ICD-10-PCS; principal; 2021-12-11)
DX: M54.41 Lumbago with sciatica, right side (principal); M54.42 Lumbago with sciatica, left side
CPT/HCPCS: 99284-25

== ENCOUNTER 2022-09-20 20:26 | Emergency (ER) | payer OTHER ==
[2022-09-20 20:42] VITALS: BP 157/87; PULSE 90; RESP 16; TEMP 99.1; BMI 33.5
[2022-09-20] MEDS ORDERED: SULFAMETHOXAZOLE/TRIMETHOPRIM 800MG/160MG D.S. TABLET PO ONE (20:54)
[2022-09-20] MEDS ORDERED: SULFAMETHOXAZOLE/TRIMETHOPRIM 800MG/160MG D.S. TABLET ONE (20:54)
== END 2022-09-20 21:06 | disposition home or self-care (01) ==
LOC: FER 20:26
DX: S50.312A Abrasion of left elbow, initial encounter (principal); L03.114 Cellulitis of left upper limb; W19.XXXA Unspecified fall, initial encounter; Y93.67 Activity, basketball
CPT/HCPCS: 99283-25

== ENCOUNTER 2024-01-05 17:10 | Emergency (ER) | payer OTHER ==
[2024-01-05 17:37] VITALS: BMI 34.8
[2024-01-05] MEDS ORDERED: ONDANSETRON 4 MG/2 ML VIAL ONE (17:39)
[2024-01-05] MEDS: SODIUM CHLORIDE 0.9% 500 ML INFUS.BAG IV ONE ×2 (18:00→19:10)
[2024-01-05] MEDS: ONDANSETRON 4 MG/2 ML VIAL IVPUSH ONE (18:00)
[2024-01-05 18:24] LABS: HEMATOCRIT 46.9 % (35.4-49); HEMOGLOBIN 15.2 G/dL (11.7-16.9); MCH 27.3 pg (25.7-33.7); MCHC 32.4 g/dl (32.0-35.9); MEAN CELL VOLUME 84.2 fl (80-96); PLATELET COUNT 154.1 10^3/uL (134-434); RBC 5.57 10^6/uL (4.00-5.60); RDW 14.3 % (11.9-15.9); WHITE BLOOD COUNT 5.7 10^3/uL (4.0-10.8)
[2024-01-05 18:30] LABS: ALBUMIN 4.1 g/dl (3.4-5.0); BILIRUBIN,TOTAL 0.5 mg/dl (0.2-1); CALCIUM 9.2 mg/dl (8.5-10.1); CREATININE 0.9 mg/dl (0.6-1.3); POTASSIUM 3.9 mmol/L (3.5-5.1); TOT PROT 6.4 g/dl (6.4-8.2)
[2024-01-05 18:49] LABS: PLATELET ESTIMATE ADEQUATE
[2024-01-05] MEDS ORDERED: KETOROLAC TROMETHAMINE 15 MG/ML VIAL ONE (19:02)
[2024-01-05] MEDS: KETOROLAC TROMETHAMINE 15 MG/ML VIAL IVPUSH ONE (19:10)
[2024-01-05 19:56] VITALS: BP 132/99; PULSE 64; RESP 15; TEMP 97.9
[2024-01-05 21:25] LABS: HIV INTERPRETATION NEGATIVE (NEGATIVE)
[2024-01-10 14:08] LABS: E.chaff HME IgG Negative (Neg:<1:64)
[2024-01-10 14:08] LABS: WEST NILE VIRUS AB SERUM,IGM Negative (Negative)
== END 2024-01-05 21:59 | disposition home or self-care (01) ==
LOC: FER 17:10
PROC: 3E033GC Introduction of Other Therapeutic Substance into Peripheral Vein, Percutaneous Approach (ICD-10-PCS; principal; 2024-01-05)
PROC: 3E0333Z Introduction of Anti-inflammatory into Peripheral Vein, Percutaneous Approach (ICD-10-PCS; 2024-01-05)
DX: A08.4 Viral intestinal infection, unspecified (principal); R10.9 Unspecified abdominal pain; R11.0 Nausea; Z20.822 Contact with and (suspected) exposure to COVID-19
CPT/HCPCS: 0241U-QW; 36415; 74177-TC; 76705-TC; 80053; 82550; 82553; 82930; 83605; 84484; 85027; 86618; 86666; 86788; 86789; 87207; 87389; 87798; 99285-25; Q9967

== ENCOUNTER 2024-01-08 18:15 | Emergency (ER) | payer OTHER ==
[2024-01-08 18:59] VITALS: BP 142/90; PULSE 65; RESP 16; TEMP 98.2; BMI 34.2
[2024-01-08 20:36] LABS: CALCIUM 9.5 mg/dl (8.5-10.1); CREATININE 1.1 mg/dl (0.6-1.3); POTASSIUM 4.6 mmol/L (3.5-5.1)
== END 2024-01-08 21:29 | disposition home or self-care (01) ==
LOC: FER 18:15
DX: R19.7 Diarrhea, unspecified (principal); R10.32 Left lower quadrant pain
CPT/HCPCS: 36415; 80048; 81003; 87086; 99283-25

== ENCOUNTER 2024-10-23 16:05 | Emergency (ER) | payer OTHER ==
[2024-10-23 16:24] VITALS: BP 148/89; PULSE 87; RESP 18; TEMP 97.8; BMI 34.8
[2024-10-23] MEDS ORDERED: LIDOCAINE 5% TOPICAL PATCH ONE (16:27)
[2024-10-23] MEDS ORDERED: NAPROXEN 500 MG TABLET ONE (16:27)
[2024-10-23] MEDS: LIDOCAINE 5% TOPICAL PATCH TP ONE (16:31)
[2024-10-23] MEDS: NAPROXEN 500 MG TABLET PO ONE (16:31)
[2024-10-23] MEDS ORDERED: LIDOCAINE PATCH REMOVAL MC SCH (22:00)
== END 2024-10-23 16:45 | disposition home or self-care (01) ==
LOC: FER 16:05
DX: M54.12 Radiculopathy, cervical region (principal); M79.602 Pain in left arm
CPT/HCPCS: 99283-25